=== PATIENT | male | born 1995 | race Caucasian/White ===

== ENCOUNTER 2019-01-05 19:14 | Emergency (ER) | payer OTHER ==
[~2019-01-05] VITALS: Ht 190.5 cm; Wt 117.9 kg
[2019-01-05] MEDS ORDERED: ULTRAM 50MG TAB50 MG PO (20:32)
[2019-01-05 21:09] VITALS: BP 149/82
== END 2019-01-05 21:13 | disposition home or self-care (01) ==
LOC: ER 19:14
DX: M26.622 Arthralgia of left temporomandibular joint (principal); F17.210 Nicotine dependence, cigarettes, uncomplicated